=== PATIENT | male | born 1990 | race Caucasian/White ===

== ENCOUNTER 2016-11-24 18:38 | Emergency (ER) | payer BC ==
[2016-11-24 18:55] VITALS: BP 163/82
--- NOTE | 2016-11-24 19:14 | UC ---
Skin Complaint HPI - HPI Summary HPI Summary: 26 yo male with right thigh mass that has been present for a minimum of 2 years Not painful Not changing in size May have got kneed there playing soccer - History of Current Complaint Chief Complaint: UCLowerExtremity Time Seen by Provider: 11/24/16 19:00 Stated Complaint: LUMP IN RIGHT THIGH Hx Obtained From: Patient Onset/Duration: Gradual Onset, Lasting Weeks - yrs Timing: Constant Current Severity: None Pain Intensity: 0 Pain Scale Used: 0-10 Numeric Location: Other - right thigh Character: Swelling Aggravating: Nothing Alleviating: Nothing Associated Signs & Symptoms: Positive: Negative Related History: Trauma - ? - Allergy/Home Medications Allergies/Adverse Reactions: Allergies Allergy/AdvReac Type Severity Reaction Status Date / Time Penicillins Allergy Hives Verified 11/24/16 18:55 Home Medications: Home Medications NK [No Home Medications Reported] 11/24/16 [History Confirmed 11/24/16] Review of Systems Constitutional: Negative Skin: Negative Eyes: Negative ENT: Negative Respiratory: Negative Cardiovascular: Negative Gastrointestinal: Negative Genitourinary: Negative Motor: Negative Neurovascular: Negative Musculoskeletal: Negative Neurological: Negative Psychological: Negative All Other Systems Reviewed And Are Negative: Yes PMH/Surg Hx/FS Hx/Imm Hx Previously Healthy: Yes - Surgical History Surgical History: Yes Surgery Procedure, Year, and Place: LEFT KNEE SX. - Family History Known Family History: Negative: Cardiac Disease, Hypertension, Diabetes - Social History Alcohol Use: Rare Substance Use Type: None Smoking Status (MU): Never Smoked Tobacco Physical Exam Triage Information Reviewed: Yes Appearance: Well-Appearing, No Pain Distress, Well-Nourished Vital Signs: Initial Vital Signs Temp 99.4 F 11/24/16 18:49 Pulse 96 11/24/16 18:49 Resp 18 11/24/16 18:49 BP 163/82 11/24/16 18:49 Pulse Ox 100 11/24/16 18:49 Eyes: Positive: Conjunctiva Clear ENT: Positive: Hearing grossly normal. Negative: Nasal congestion, Nasal drainage, Trismus, Muffled/hoarse voice Neck: Positive: Supple Respiratory: Positive: Lungs clear, Normal breath sounds, No respiratory distress Cardiovascular: Positive: RRR, No Murmur. Negative: Tachycardia, Bradycardia Musculoskeletal: Positive: Strength Intact, ROM Intact Neurological: Positive: Alert Psychological Exam: Normal Skin Exam: Normal Course/Dx - Diagnoses Provider Diagnoses: right thigh mass of uncertain cause Discharge - Discharge Plan Condition: Stable Disposition: HOME Referrals: Tony Owusu MD [Medical Doctor] - 2 Weeks Additional Instructions: I suggest you contact a surgeon to have your RIGHT THIGH MASS evaluated It feels cystic to me see list for local surgeons Dr Owusu is contact center director surgeon in [place] Images Front/Back of Body, Lg ([place]): 1 - [id number] cystic mass/round border/mobile
== END 2016-11-24 19:18 | disposition home or self-care (01) ==
LOC: UCCORT 18:38
DX: R22.31 Localized swelling, mass and lump, right upper limb (principal); Z88.0 Allergy status to penicillin
CPT/HCPCS: 99201; G0463